=== PATIENT | male | born 1950 ===

== ENCOUNTER 2022-02-24 09:42 | Day surgery (SDC) | payer OTHER ==
[~2022-02-24] VITALS: Ht 162.6 cm; Wt 63.0 kg
[~2022-02-24 09:42] MED LIST: ATOR10 PO; Amlodipine Bes2.5 MG PO
[2022-02-24] MEDS ORDERED: ERGO400 (10:16)
[2022-02-24] MEDS ORDERED: CALCIUM 1,0001 EAC1 (10:18)
== END 2022-02-24 12:00 | disposition home or self-care (01) ==
LOC: ORSCSDS 09:42
PROVIDERS: Ophthalmology
PROC: 08RJ3JZ Replacement of Right Lens with Synthetic Substitute, Percutaneous Approach (ICD-10-PCS; principal; 2022-02-24 11:00)
DX: H25.13 Age-related nuclear cataract, bilateral (principal); I10 Essential (primary) hypertension; E78.00 Pure hypercholesterolemia, unspecified; Z87.891 Personal history of nicotine dependence
CPT/HCPCS: J2250; J3010; J3301; J7040; V2632

== ENCOUNTER 2022-03-17 09:47 | Day surgery (SDC) | payer OTHER ==
[~2022-03-17] VITALS: Ht 162.6 cm; Wt 64.5 kg
[~2022-03-17 09:47] MED LIST changes: +CALCIUM 1,0001 EAC1; +ERGO400
--- NOTE | 2022-03-17 10:55 | NUR ---
03/17/22 Consuelo Olivarez @ [id number], SIMON @ [id number]
== END 2022-03-17 12:25 | disposition home or self-care (01) ==
LOC: ORSCSDS 09:47
PROVIDERS: Ophthalmology
PROC: 08RK3JZ Replacement of Left Lens with Synthetic Substitute, Percutaneous Approach (ICD-10-PCS; principal; 2022-03-17 11:30)
DX: H25.12 Age-related nuclear cataract, left eye (principal); I10 Essential (primary) hypertension; Z79.899 Other long term (current) drug therapy
CPT/HCPCS: J2001; J2250; J3010; J3301; J7040; V2632